=== PATIENT | male | born 1960 | race Caucasian/White ===

== ENCOUNTER → 2017-11-14 | Outpatient (CLI) | payer BC ==
[~2017-11-14] MED LIST: ATOR20TA9 PO; ENOX30SY4 SC; METO25TA35 PO; MONT10TA6 PO; RANI150T8 PO; WARF10TA6 PO; WARF1TAB7 PO
[2017-11-14 09:52] LABS: BASOPHILS # (AUTO) 0.01 x10^3/uL (0-0.1); BASOPHILS % (AUTO) 0 % (0-1); EOSINOPHILS # (AUTO) 0.08 x10^3/uL (0-0.4); EOSINOPHILS % (AUTO) 2 % (1-7); LYMPHOCYTES % (AUTO) 33 % (22-44); MD NO; MEAN CORPUSCULAR HEMOGLOBIN 30.8 pg (27.5-34.5); MEAN CORPUSCULAR HGB CONC 34.4 g/dL (33.2-36.2); MEAN CORPUSCULAR VOLUME 89.5 fL (81-97); MEAN PLATELET VOLUME 7.1 fL (7.4-10.4); MONOCYTES # (AUTO) 0.34 x10^3/uL (0.2-0.8); MONOCYTES % (AUTO) 8 % (2-9); NEUTROPHILS # (AUTO) 2.46 x10^3/uL (1.8-6.8); NEUTROPHILS % (AUTO) 57 % (42-75); PLATELET COUNT 166 x10^3/uL (130-400); RED BLOOD COUNT 5.52 x10^6/uL (4.38-5.82); RED CELL DISTRIBUTION WIDTH 13.9 % (9.4-14.8)
[2017-11-14 09:53] LABS: MICROSCOPIC NOT IND
[2017-11-14 09:58] LABS: CULTURE INDICATED? NO
[2017-11-14 10:04] LABS: ANION GAP 7 mmol/L (5-15); CALCIUM 8.3 mg/dL (8.5-10.1); CHLORIDE 112 mmol/L (98-107); CREATININE 1.01 mg/dL (0.7-1.3)
[2017-11-14 10:05] LABS: INTERNATIONAL NORMALIZED RATIO 3.69 (0.93-1.1)
== END | disposition home or self-care (01) ==
LOC: STAR 08:49
PROVIDERS: ATTEND Orthopaedic Surgery Adult Reconstructive Orthopaedic Surgery
DX: M17.12 Unilateral primary osteoarthritis, left knee (principal); M25.562 Pain in left knee; R79.1 Abnormal coagulation profile
CPT/HCPCS: 36415; 80048; 81003; 85025; 85610; 85730; 87081

== ENCOUNTER 2017-11-21 07:16 | Observation (INO) | payer BC ==
[2017-11-14 09:13] VITALS: BP 128/85
[~2017-11-21] VITALS: Ht 180.3 cm; Wt 98.2 kg
[2017-11-21] MEDS ORDERED: VANCOMYCIN PER PHARMACY MC ONE (07:48)
[2017-11-21] MEDS ORDERED: LACTATED RINGERS 1,000 ML IV SCH (07:56)
[2017-11-21] MEDS ORDERED: CALC200T3 PO (08:00)
[2017-11-21] MEDS ORDERED: ATROVENT INH (08:00)
[2017-11-21] MEDS ORDERED: VANCOMYCIN 1,500 MG in SODIUM CHLORIDE 0.9% 250 ML IV ONE (08:00)
[2017-11-21 08:28] LABS: INTERNATIONAL NORMALIZED RATIO 1.08 (0.93-1.1); PROTHROMBIN TIME 11.1 Seconds (9.6-11.5)
[2017-11-21] MEDS ORDERED: PNEUMOCOCCAL 23 VACCINE IM-VACC ONE (09:00)
[2017-11-21] MEDS ORDERED: SODIUM CHLORIDE 0.9% 0 ML ONE (09:03)
[2017-11-21] MEDS ORDERED: ROPIvacaine/PF 0.5%, 30 ML ONE (09:03)
[2017-11-21] MEDS ORDERED: KETOROLAC 60 MG/2 ML ONE (09:04)
[2017-11-21] MEDS ORDERED: EPINEPHRINE 1 MG/ML, 1ML ONE (09:04)
[2017-11-21] MEDS ORDERED: BACITRACIN 50,000 UNIT ONE (09:04)
[2017-11-21] MEDS ORDERED: TRANEXAMIC ACID 100 MG/ML, 10ML ONE ×2 (09:05)
[2017-11-21] MEDS ORDERED: GLYCOPYRROLATE 0.2MG/1ML, 5ML ONE (09:34)
[2017-11-21] MEDS ORDERED: CEFAZOLIN 1,000 MG ONE (09:34)
[2017-11-21] MEDS ORDERED: ROCURONIUM 10 MG/ML,10ML ONE (09:34)
[2017-11-21] MEDS ORDERED: NEOSTIGMINE 1 MG/ML, 10ML ONE (09:34)
[2017-11-21] MEDS ORDERED: PROPOFOL 10 MG/ML, 20ML ONE (09:34)
[2017-11-21] MEDS ORDERED: DIPHENHYDRAMINE 25 MG CAPSULE PO PRN (12:00)
[2017-11-21] MEDS ORDERED: SENNA/DOCUSATE TABLET PO PRN (12:00)
[2017-11-21] MEDS ORDERED: ALUMINUM/MAG/SIMETHICONE 30 ML UDC PO PRN (12:00)
[2017-11-21] MEDS ORDERED: ONDANSETRON 2MG/ML, 2ML IV PRN (12:00)
[2017-11-21] MEDS ORDERED: LORazepam 1MG TABLET PO PRN (12:00)
[2017-11-21] MEDS ORDERED: ONDANSETRON 4 MG TABLET PO PRN (12:00)
[2017-11-21] MEDS ORDERED: ZOLPIDEM 5MG TABLET PO PRN (12:00)
[2017-11-21] MEDS ORDERED: INSTRUCTION SEE COMMENTS XX PRN (12:00)
[2017-11-21] MEDS ORDERED: BISACODYL 10 MG SUPP PR PRN (12:00)
[2017-11-21] MEDS ORDERED: PROMETHAZINE 25 MG/ML, 1ML IM PRN (12:00)
[2017-11-21] MEDS ORDERED: PROMETHAZINE 12.5 MG SUPP PR PRN (12:00)
[2017-11-21] MEDS ORDERED: MAGNESIUM HYDROXIDE 8%, 30ML UDC PO PRN (12:00)
[2017-11-21] MEDS ORDERED: HYDROmorphone 2 MG/ML, 1ML ONE (12:06)
[2017-11-21] MEDS ORDERED: OXYcodone 5 MG/5 ML ORAL.SOL UDC ONE (12:07)
[2017-11-21] MEDS: HYDROmorphone 1 MG/ML, 1ML IV PRN ×4 (12:10→12:55)
[2017-11-21] MEDS ORDERED: FENTANYL PF 100 MCG/2ML ONE (12:25)
[2017-11-21] MEDS: FENTANYL PF 100 MCG/2ML IV PRN ×2 (12:25→12:50)
[2017-11-21] MEDS ORDERED: ONDANSETRON 2MG/ML, 2ML ONE (12:27)
[2017-11-21] MEDS ORDERED: OXYcodone 5 MG/5 ML ORAL.SOL UDC PO PRN (12:30)
[2017-11-21] MEDS ORDERED: ONDANSETRON 2MG/ML, 2ML IVPush PRN (12:30)
[2017-11-21] MEDS ORDERED: WARFARIN MODERAT DOSE PROTOCOL XX SCH (14:59)
[2017-11-21] MEDS: ACETAMINOPHEN 500 MG TABLET PO SCH ×2 (16:06→23:08)
[2017-11-21] MEDS: TAMSULOSIN 0.4 MG CAP.ER.24H PO SCH (16:07)
[2017-11-21] MEDS: SODIUM CHLORIDE 0.9% 1,000 ML IV SCH ×2 (16:07→23:11)
[2017-11-21] MEDS: CEFAZOLIN PMX 2GM/50ML 50 ML IVPB SCH ×2 (16:07→23:08)
[2017-11-21] MEDS ORDERED: WARFARIN 5 MG TABLET PO-COUM ONE (17:51)
[2017-11-21] MEDS ORDERED: METOPROLOL TARTRATE 25 MG TABLET PO SCH (18:00)
[2017-11-21] MEDS ORDERED: WARFARIN 10 MG TABLET PO-COUM ONE (18:00)
[2017-11-21] MEDS: OXYcodone IR 5MG TABLET PO PRN (18:33)
[2017-11-21 19:48] VITALS: BP 114/69
[2017-11-21] MEDS: METOPROLOL TARTRATE 25 MG TABLET PO SCH (19:56)
[2017-11-21] MEDS: FAMOTIDINE 20 MG TABLET PO SCH (19:56)
[2017-11-21] MEDS: DOCUSATE 100 MG CAPSULE PO SCH (19:56)
[2017-11-21] MEDS ORDERED: ATORVASTATIN 20 MG TABLET PO SCH (21:00)
[2017-11-21] MEDS ORDERED: MONTELUKAST 10 MG TABLET PO SCH (21:00)
[2017-11-21 23:05] VITALS: BP 110/64
[2017-11-22] MEDS: FAMOTIDINE 20 MG TABLET PO SCH ×2 (01:22→08:26)
[2017-11-22 02:16] VITALS: BP 104/62
[2017-11-22] MEDS: DIAZEPAM 5 MG TABLET PO PRN ×2 (02:52→08:23)
[2017-11-22 05:10] LABS: INTERNATIONAL NORMALIZED RATIO 1.08 (0.93-1.1); PROTHROMBIN TIME 11.1 Seconds (9.6-11.5)
[2017-11-22 05:18] LABS: ALBUMIN 3.2 g/dL (3.4-5.0); ANION GAP 7 mmol/L (5-15); CALCIUM 7.2 mg/dL (8.5-10.1); CHLORIDE 104 mmol/L (98-107); CREATININE 1.04 mg/dL (0.7-1.3)
[2017-11-22] MEDS ORDERED: ENOXAPARIN 40 MG/0.4 ML SQ SCH (06:00)
[2017-11-22] MEDS: OXYcodone IR 5MG TABLET PO PRN ×2 (06:07→10:28)
[2017-11-22] MEDS: ACETAMINOPHEN 500 MG TABLET PO SCH (06:07)
[2017-11-22 07:02] VITALS: BP 97/55
[2017-11-22] MEDS: DOCUSATE 100 MG CAPSULE PO SCH (08:23)
[2017-11-22] MEDS: TAMSULOSIN 0.4 MG CAP.ER.24H PO SCH (08:23)
[2017-11-22] MEDS: METOPROLOL TARTRATE 25 MG TABLET PO SCH (08:26)
[2017-11-22] MEDS: SODIUM CHLORIDE 0.9% 1,000 ML IV SCH (08:26)
[2017-11-22 08:27] VITALS: BP 105/57
[2017-11-22] MEDS ORDERED: OXYC5CAP2 PO (12:00)
[2017-11-22] MEDS ORDERED: KETOROLAC 30 MG/1 ML IV SCH (12:00)
[2017-11-22] MEDS ORDERED: ACET-1600 PO (12:01)
[2017-11-22] MEDS ORDERED: MELO7.5T5 PO (12:01)
[2017-11-22] MEDS ORDERED: DOCU-131 PO (12:02)
[2017-11-22] MEDS ORDERED: ENOX40SY4 SQ (12:02)
[2017-11-22] MEDS ORDERED: WARFARIN 10 MG TABLET PO-COUM ONE (18:00)
== END 2017-11-22 12:25 | disposition home or self-care (01) ==
LOC: OUT 07:16 → EDSTATUS 09:00 → ORIP 11:54 → 4NOR 14:31 → DCLOUNGE 11-22 12:00
PROVIDERS: ADMIT Orthopaedic Surgery Adult Reconstructive Orthopaedic Surgery; ATTEND Orthopaedic Surgery Adult Reconstructive Orthopaedic Surgery
DX: M17.32 Unilateral post-traumatic osteoarthritis, left knee (principal); Z86.711 Personal history of pulmonary embolism
CPT/HCPCS: 27447; 36415; 73560; 80048; 82040; 85018; 85610; 85730; 96365; 96372; 96375; 97116; 97150; 97161; 97165; C1713; C1776; G0378; G8978; G8979; G8980; J0690; J1170; J1650; J2250; J2405; J2704; J2710; J2795; J3010; J3370; J7030; J7050; J7120; J0171; J1885; J3490